=== PATIENT | female | born 1985 | race Asian ===

== ENCOUNTER 2017-12-07 19:51 | Emergency (ER) | payer OTHER ==
[~2017-12-07] VITALS: Ht 162.6 cm; Wt 43.5 kg
[2017-12-07 20:12] VITALS: Ht 162.6 cm; Wt 43.5 kg
[2017-12-07 21:16] LABS: BASOPHIL % 0.7 % (0-2); PLATELET COUNT 241 x10^3mcL (130-400)
[2017-12-07 21:29] LABS: CALCIUM 8.7 mg/dL (8.5-10.1); CARBON DIOXIDE 26.9 mmol/L (21-32); CHLORIDE SERUM 99 mmol/L (98-107); CREATININE SERUM 0.7 mg/dL (0.6-1.0); GFR1 > 60 mL/min; GLUCOSE SERUM 92 mg/dL (74-106); POTASSIUM SERUM 3.4 mmol/L (3.5-5.1); SODIUM SERUM 137 mmol/L (136-145)
[2017-12-07 21:33] LABS: ALKALINE PHOSPHATASE 68 U/L (46-116); ALT/SGPT 37 U/L (14-59); AST/SGOT 27 U/L (15-37); LIPASE 167 IU/L (73-393); TOTAL PROTEIN, SERUM 7.6 g/dL (6.4-8.2)
[2017-12-07 21:34] LABS: ALBUMIN 3.3 g/dL (3.4-5.0)
[2017-12-07 22:37] LABS: UA SPECIFIC GRAVITY >=1.030 (1.005-1.035); microscopic required? YES; urine erythrocyte 1+ (NEGATIVE)
[2017-12-07 23:12] VITALS: BP 101/68
== END 2017-12-07 23:12 | disposition home or self-care (01) ==
LOC: ED 19:51
PROVIDERS: Emergency Medicine
DX: K52.9 Noninfective gastroenteritis and colitis, unspecified (principal)
CPT/HCPCS: J1885; J2270; J2405; J7030